=== PATIENT | female | born 1960 | race Caucasian/White ===

== ENCOUNTER 2021-03-19 04:04 | Emergency (ER) | payer OTHER ==
[~2021-03-19] VITALS: Ht 172.7 cm; Wt 72.6 kg
[~2021-03-19 04:04] MED LIST: SYNTHROID112 MCG
[2021-03-19] MEDS ORDERED: KETO10TA2 PO (05:50)
== END 2021-03-19 06:17 | disposition home or self-care (01) ==
LOC: ER 04:04
DX: M94.0 Chondrocostal junction syndrome [Tietze] (principal)